=== PATIENT | male | born 1940 | race Caucasian/White ===

== ENCOUNTER → 2016-11-07 | Outpatient (CLI) | payer MEDICARE, OTHER ==
[~2016-11-07] MED LIST: ALLO300T PO; BECL8.7A5 INH; CEPH-376 PO; CHOL200024 PO; FINA5TAB4 PO; GABA600T2 PO; GLIM4TAB2 PO; LEVO175T2 PO; LIRA0.6P INJ; LISI5TAB7 PO; MAGN300C PO; METF500T4 PO; METO-93 PO; MULT1CAP19 PO; RIVA20TA PO; SIMV40TA3 PO; TAMS0.4C2 PO; VALE450C PO
== END | disposition home or self-care (01) ==
LOC: CFH 15:41
PROVIDERS: ATTEND Internal Medicine
DX: M51.36 Other intervertebral disc degeneration, lumbar region (principal); M54.30 Sciatica, unspecified side; M48.07 Spinal stenosis, lumbosacral region; M47.897 Other spondylosis, lumbosacral region; M47.896 Other spondylosis, lumbar region
CPT/HCPCS: 72148

== ENCOUNTER → 2017-05-14 | Outpatient (CLI) | payer MEDICARE, OTHER ==
[~2017-05-14] MED LIST changes: -BECL8.7A5 INH; +BECL8.7A7 INH
== END | disposition home or self-care (01) ==
LOC: CFH 11:53
PROVIDERS: ATTEND Nurse Practitioner Primary Care
DX: R06.02 Shortness of breath (principal); E11.65 Type 2 diabetes mellitus with hyperglycemia; I48.2 Chronic atrial fibrillation; E03.9 Hypothyroidism, unspecified; F41.9 Anxiety disorder, unspecified; E78.1 Pure hyperglyceridemia
CPT/HCPCS: 71020